=== PATIENT | male | born 1935 | race Caucasian/White ===

== ENCOUNTER 2020-04-04 16:47 | Emergency (ER) | payer MEDICARE, SELFPAY ==
[2020-04-04 17:06] VITALS: BP 149/74; PULSE 77; RESP 16; TEMP 37.1; O2SAT 96; BMI 29.2
[2020-04-04 17:10] VITALS: BP 149/74; PULSE 87; RESP 16; O2SAT 95
--- NOTE | 2020-04-04 17:16 | XRR_ITS ---
PROCEDURE INFORMATION: Exam: XR Chest, 1 View Exam date and time: 04/04/2020 5:32 PM Age: 84 years old Clinical indication: Cough; Prior surgery; Surgery type: Bypass; Additional info: Cough, covid exposure TECHNIQUE: Imaging protocol: XR of the chest Views: 1 view. COMPARISON: CR Chest 1 [place] [id number] 04/09/2019 1:15 PM FINDINGS: Tubes, catheters and devices: Interval removal of previously visualized thoracostomy tubes. Lungs: Emphysematous change and interstitial prominence. Interval resolution of basilar airspace disease. Pleural space: No pleural effusion or pneumothorax. Heart/Mediastinum: Epicardial fat, without cardiomegaly. Bones/joints: Median sternotomy. Osteopenia and degenerative change. XR/XR chest 1V portable [id number] IMPRESSION: 1. Emphysematous change and interstitial prominence. 2. No acute airspace or pleural disease.
[2020-04-04 17:28] LABS: Basophils % 0.2 %; Eosinophils % 0.2 %; Hematocrit 38.6 % (42.0-52.0); Hemoglobin 12.9 g/dL (11.7-16.6); Lymphocytes % 17.8 %; Mean Corpuscular HGB Conc 33.4 g/dL (30.0-36.0); Mean Corpuscular Hemoglobin 31.7 pg (28.0-34.0); Mean Corpuscular Volume 94.8 fL (80-94); Mean Platelet Volume 10.6 fL (7.4-10.4); Monocytes # 1.2 10^3/uL (0.2-0.9); Monocytes % 21.8 %; Neutrophils # 3.19 10^3/uL (1.8-7.7); Neutrophils % 59.8 %; Nucleated Red Blood Cells % 0 %; Platelet Count 135 10^3/cmm (130-400); Red Blood Count 4.07 10^6/uL (4.1-5.3); Red Cell Distribution Width 12.4 % (12.1-15.1); White Blood Count 5.3 10^3/uL (4.0-10.0)
--- NOTE | 2020-04-04 18:01 | ED_ITS ---
HPI - General Adult General: Chief complaint: General Medical Stated complaint: DIZZY/HAS BEEN EXPOSED TO +COVID Time Seen by Provider: 04/04/20 17:06 History of Present Illness: HPI narrative: This patient is an 84-year-old male presenting today for COVID test. 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 His exposure consisted of being in the same room and shaking hands. The patient called his primary care doctor and was told to come to the ER for test. He does have complaints of dizziness which is more lightheadedness when he stands up, and cough. But he tells me those symptoms have been ongoing and unchanged since he had cardiac bypass surgery a year ago. He denies having any new symptoms at all. He has no fever. He found out on Wednesday that the wheel presser was positive for COVID. Review of Systems Resp: Reports: productive cough (For the past year) Neuro: Reports: dizziness (Lightheaded upon standing) [facility] ED PFSH: Medical History CAD (coronary artery disease) CHF (congestive heart failure) Essential hypertension Family History Sister Cancer Grandfather Diabetes Brother Diabetes Denies family history of CAD (coronary artery disease) Clotting disorder Dementia Hyperlipidemia Psychiatric illness Chronic kidney disease (CKD) Suicide Anesthesia complication Bleeding disorder Family history of premature coronary artery disease Lung disease Hypertension Stroke Social History Smoking and tobacco status: former smoker Alcohol intake: former Physical Exam Const: COMMON NORMALS: no acute distress, patient oriented x3, no limitations and alert GENERAL APPEARANCE: cooperative and comfortable HENMT: HEAD & SCALP: normal to inspection FACE & SINUS: normal facial exam Eye: GENERAL EYE: appearance normal, both eyes and all related structures Neck/C-Spine: COMMON NORMALS: supple, no meningeal signs and no JVD Chest: COMMONS NORMALS: normal inspection of the chest (Well-healed sternotomy scar) Resp: COMMON NORMALS: normal respiratory effort, No use of accessory muscles and clear to auscultation bilaterally AUSCULTATION: clear to auscultation bilaterally Cardio: COMMON NORMALS: no JVD, regular rate, regular rhythm and No murmurs present (Cardio) RATE: regular rate RHYTHM: regular rhythm GI: COMMON NORMALS: Normal to inspection, nondistended, normoactive bowel sounds present, Soft to palpation and non-tender INSPECTION: Yes normal to inspection AUSCULTATION: Yes normoactive bowel sounds PALPATION: Yes Soft to palpation Back/Pelvis: COMMON NORMALS: thoracic and lumbar spine normal to inspection Extremity: COMMON NORMALS: normal to inspection Neuro: COMMON NORMALS: patient oriented x3, moves all extremities, no focal motor deficits and no sensory deficits noted SENSORIUM/ORIENTATION: Yes alert MENINGEAL SIGNS: Yes no meningeal signs Psych: COMMON NORMALS: mental status grossly normal, cooperative and normal affect Skin: COMMON NORMALS: no rashes or lesions noted and turgor normal GENERAL SKIN EXAM: no rashes or lesions noted and turgor normal Course ED course: Patient with exposure to COVID but no new symptoms. He does have some renal insufficiency and I am unable to tell if that is new. His previous labs here were normal but are quite remote. He was instructed to follow-up with his primary care provider for recheck of those within the next week. We disc ussed quarantine until the results are back. Vital Signs: Vital signs: Vital Signs Temperature 98.8 F 04/04/20 17:06 Pulse Rate 73 04/04/20 19:24 Respiratory Rate 14 04/04/20 19:24 Blood Pressure 143/77 04/04/20 19:24 Pulse Oximetry 95 04/04/20 19:24 [facility] - General Adult Lab Data: Labs: Lab Results 04/04/20 04/04/20 04/04/20 Range/Units 17:11 17:11 17:50 WBC 5.3 (4.0-10.0) 10^3/ uL RBC 4.07 L (4.1-5.3) 10^6/u L Hgb 12.9 (11.7-16.6) g/dL Hct 38.6 L (42.0-52.0) % MCV 94.8 H (80-94) fL MCH 31.7 (28.0-34.0) pg MCHC 33.4 (30.0-36.0) g/dL RDW 12.4 (12.1-15.1) % Plt Count 135 (130-400) 10^3/c mm MPV 10.6 H (7.4-10.4) fL Neut % (Auto) 59.8 % Lymph % (Auto) 17.8 % [place] % (Auto) 21.8 % Eos % (Auto) 0.2 % Baso % (Auto) 0.2 % Neut # (Auto) 3.19 (1.8-7.7) 10^3/u L Lymph # (Auto) 1.0 (0.8-4.8) 10^3/u L [place] # (Auto) 1.2 H (0.2-0.9) 10^3/u L Eos # (Auto) 0.0 (0.0-0.8) 10^3/u L Baso # (Auto) 0.0 (0.0-0.1) 10^3/u L Nucleated RBC % (a uto) 0 % Nucleated RBCs # 0.0 /100WBC Sodium Cancelled 137 Potassium Cancelled 4.5 Chloride Cancelled 102 Carbon Dioxide Cancelled 22 Anion Gap Cancelled 17.5 BUN Cancelled 53 H Creatinine Cancelled 1.7 H GFR Calculation Cancelled Not Reportable Glucose Cancelled 125 H Calculated Osmolal ity Cancelled 284 L Calcium Cancelled 9.2 Total Bilirubin Cancelled 0.4 AST Cancelled 22 ALT Cancelled 18 Alkaline Phosphata se Cancelled 77 Total Protein Cancelled 6.7 Albumin Cancelled 4.2 Globulin Cancelled 2.5 Discharge Plan Discharge Patient Disposition: Home Clinical Impression: COVID-19 virus test result unknown, Renal insufficiency Condition: Stable Prescriptions: No Action metformin 1,000 mg tablet 1,000 mg PO BID RF: 0 latanoprost 0.005 % drops 1 drop ophthalmic (eye) DAILY RF: 0 atorvastatin 20 mg tablet 20 mg PO DAILY RF: 0 aspirin [Adult Aspirin Regimen] 81 mg tablet,delayed release (DR/EC) 81 mg PO DAILY RF: 0 calcium carbonate-vitamin D3 [Caltrate with Vitamin D3] 600 mg(1,500mg) -800 unit tablet 1 tab PO DAILY RF: 0 geriatric [id number] Tablet 1 tab PO DAILY RF: 0 brimonidine 0.1 % drops 1 drop ophthalmic (eye) Q8H RF: 0 isosorbide dinitrate 30 mg tablet 30 mg PO BID RF: 0 carvedilol 3.125 mg tablet 9.375 mg PO BID 90 Days Qty: 540 RF: 3 potassium chloride 20 mEq tablet extended release 20 meq PO BID Qty: 180 RF: 3 lisinopril 5 mg tablet 5 mg PO BID Qty: 180 RF: 3 furosemide 20 mg tablet 20 mg PO BID PRN (Reason: weight gain) Qty: 180 RF: 3 Discharge Orders: Discharge Order (Routine); Ordered 04/04/20 Ordered By: Karishma Pagan Referrals: Nick Gonzalez MD [Primary Care Provider] - Discharge Diet: Usual diet Discharge Activity: Resume usual activity Patient Instructions: Chronic Kidney Disease (ED) Activity Restrictions/Additional Instructions: Follow-up with Dr. Gonzalez for repeat kidney function tests within 1 week. Self quarantine while awaiting the test results for COVID-19. Return to the emergency department immediately if any new or worsening symptoms including shortness of breath, cough, fever. Discharge Date/Time: 04/04/20 19:25 Coding Level of Care Code ED Bag Loader for Lilly Mcgee Exam Comprehensive
[2020-04-04 18:13] LABS: Alanine Aminotransferase 18 U/L (0-41); Albumin Level 4.2 g/dL (3.5-5.2); Alkaline Phosphatase 77 IU/L (40-130); Anion Gap 17.5 (5-19); Aspartate Amino Transferase 22 U/L (0-40); Blood Urea Nitrogen 53 mg/dL (8-23); Calcium 9.2 mg/dL (8.5-10.5); Carbon Dioxide 22 mmol/L (22-29); Chloride 102 mmol/L (98-107); Globulin 2.5 g/dL (1.3-4.6); Glucose 125 mg/dL (65-115); Osmolality Calculated 284 mOsm/kg (285-295); Potassium 4.5 mmol/L (3.5-5.1); Sodium 137 mmol/L (136-145); Total Bilirubin 0.4 mg/dL (0.15-1.2); Total Protein 6.7 g/dL (6.6-8.7)
--- NOTE | 2020-04-04 18:25 | PC.NURSE ---
Pt has been swabbed for Covid and test in lab.
[2020-04-04 19:24] VITALS: BP 143/77; PULSE 73; RESP 14; O2SAT 95
[2020-04-06 17:00] LABS: Quest SARS-CoV-2 RNA DETECTED (NOT DETECTED)
== END 2020-04-04 19:25 | disposition home or self-care (01) ==
PROVIDERS: Emergency Provider Emergency Medicine; PCP Family Medicine
DX: U07.1 COVID-19 (principal); N28.9 Disorder of kidney and ureter, unspecified; Z79.82 Long term (current) use of aspirin; I25.10 Atherosclerotic heart disease of native coronary artery without angina pectoris; I11.0 Hypertensive heart disease with heart failure; I50.9 Heart failure, unspecified; Z87.891 Personal history of nicotine dependence
CPT/HCPCS: 12345; 36415; 71045; 80053; 85025; 87635; 99283